=== PATIENT | male | born 1990 | race African-American/Black ===

== ENCOUNTER 2016-11-23 22:45 | Emergency (ER) | payer BC | END 2016-11-23 23:35 | disposition home or self-care (01) | LOC: ER 22:45 | DX: S56.812A Strain of other muscles, fascia and tendons at forearm level, left arm, initial encounter (principal); R10.2 Pelvic and perineal pain; V49.9XXA Car occupant (driver) (passenger) injured in unspecified traffic accident, initial encounter | CPT/HCPCS: 72170; 73080-LT; 99284 ==

== ENCOUNTER 2016-11-24 11:14 | Emergency (ER) | payer BC | END 2016-11-24 11:17 | disposition home or self-care (01) | LOC: ER 11:14 | PROC: 2W3DX1Z Immobilization of Left Lower Arm using Splint (ICD-10-PCS; principal; 2016-11-24) | DX: S29.9XXA Unspecified injury of thorax, initial encounter (principal); S69.92XA Unspecified injury of left wrist, hand and finger(s), initial encounter; F17.200 Nicotine dependence, unspecified, uncomplicated; V49.9XXA Car occupant (driver) (passenger) injured in unspecified traffic accident, initial encounter | CPT/HCPCS: 71020; 73110-LT; 99284 ==